=== PATIENT | female | born 1985 | race Caucasian/White ===

== ENCOUNTER 2018-03-29 17:10 | Emergency (ER) | payer OTHER, MEDICAID ==
[~2018-03-29] VITALS: Ht 170.2 cm; Wt 92.5 kg
[~2018-03-29 17:10] MED LIST: BUSPAR 5 MG TABL5 M1; CIPRO250 M1 PO; CIPROFLOXACIN500 M1 PO; CLEOCIN HCL300 MG PO; FLAGYL500 MG PO; IBUPROFEN 800800 M1 PO; IBUPROFEN 800800 MG PO; KEFLEX500 MG PO; MACROBID 100 M100 M1 PO; NOHOMEMEDICATIONS; NORCO 5-325 TA1 EACH PO; PERCOCET 5-3251 EACH PO; PHENERGAN 25 MG25 M1 PO; PHENERGAN25 M2 RC; PRENATAL PO; PROMETHAZINE HC25 M1 PO; PYRIDIUM200 MG PO; TRAMADOL 50 MG50 MG PO; ULTRAM 50MG TAB50 MG PO; ZOFRAN 4 MG ORAL4 M1 DIS; ZOFRAN 4 MG ORAL4 MG PO; ZOFRAN ODT4 MG PO
[2018-03-29] MEDS ORDERED: BUSPIRONE HCL10 MG PO (17:34)
[2018-03-29 18:24] LABS: URINE BILIRUBIN NEGATIVE (Negative); URINE BLOOD NEGATIVE (Negative); URINE CLARITY CLEAR; URINE COLOR YELLOW; URINE GLUCOSE-RANDOM NEGATIVE (Negative); URINE KETONES NEGATIVE (Negative); URINE LEUKOCYTES-REFLEX NEGATIVE (Negative); URINE NITRITE-REFLEX NEGATIVE (Negative); URINE PROTEIN NEGATIVE (Negative); URINE SPECIFIC GRAVITY 1.015 (1.005-1.030); URINE UROBILINOGEN 0.2 E.U./dl (0.2-1.0)
[2018-03-29 18:25] LABS: ABSOLUTE EOSINOPHILS 0.1 thou/uL (0.0-0.7); ABSOLUTE LYMPHOCYTES 1.8 thou/uL (0.8-5.3); ABSOLUTE MONOCYTES 0.5 thou/uL (0.0-1.2); ABSOLUTE NEUTROPHILS 3.1 thou/uL (1.6-8.1); BASOPHILS 0.4 %; EOSINOPHILS 1.6 %; HEMATOCRIT 40.7 % (37.0-47.0); HEMOGLOBIN 13.6 gm/dL (12.0-15.0); LYMPHOCYTES 33.5 %; MCH 31.2 pg (26.0-34.0); MCHC 33.5 g/dL (28.0-37.0); MCV 93.1 fL (80.0-100.0); MONOCYTES 8.3 %; MPV 8.9 fl. (7.2-11.1); NUCLEATED RBCS 0 /100WBC; PLATELET COUNT* 166 thou/uL (150-400); POLYS 56.2 %; RBC 4.37 mil/uL (4.20-5.00); RDW-CV 12.6 % (10.5-14.5); WBC 5.5 thou/uL (4.0-11.0)
[2018-03-29 18:46] LABS: PLATELET ESTIMATE ADEQUATE
[2018-03-29 18:47] LABS: CALCIUM 9.3 mg/dL (8.5-10.1); CREATININE 0.9 mg/dL (0.6-1.3); POTASSIUM 4.5 mmol/L (3.5-5.1)
[2018-03-29 18:52] LABS: ALBUMIN 3.4 g/dL (3.4-5.0); TOTAL BILIRUBIN 0.2 mg/dL (<0.1-1.0); TOTAL PROTEIN 6.1 g/dL (6.4-8.2)
[2018-03-29 19:35] VITALS: BP 112/77
== END 2018-03-29 19:36 | disposition home or self-care (01) ==
LOC: M.ERS 17:10
PROVIDERS: Nurse Practitioner Family
DX: D24.1 Benign neoplasm of right breast (principal); Z87.442 Personal history of urinary calculi; Z88.5 Allergy status to narcotic agent; Z88.6 Allergy status to analgesic agent

== ENCOUNTER 2018-05-31 17:19 | Emergency (ER) | payer OTHER, MEDICAID ==
[~2018-05-31] VITALS: Ht 170.2 cm; Wt 93.0 kg
[~2018-05-31 17:19] MED LIST changes: +BUSPIRONE HCL10 MG PO
[2018-05-31 18:20] LABS: INFLUENZA A ANTIGEN None Detected (None Detect); INFLUENZA B ANTIGEN None Detected (None Detect)
[2018-05-31 18:57] LABS: URINE BILIRUBIN NEGATIVE (Negative); URINE BLOOD NEGATIVE (Negative); URINE CLARITY CLEAR; URINE COLOR YELLOW; URINE GLUCOSE-RANDOM NEGATIVE (Negative); URINE KETONES NEGATIVE (Negative); URINE LEUKOCYTES-REFLEX NEGATIVE (Negative); URINE NITRITE-REFLEX NEGATIVE (Negative); URINE PROTEIN NEGATIVE (Negative); URINE UROBILINOGEN 0.2 E.U./dl (0.2-1.0)
[2018-05-31] MEDS ORDERED: PREDNISONE 10 M10 M1 PO (19:12)
[2018-05-31 19:30] VITALS: BP 142/88
== END 2018-05-31 19:31 | disposition home or self-care (01) ==
LOC: M.ERS 17:19
PROVIDERS: Nurse Practitioner
DX: B34.9 Viral infection, unspecified (principal); Z88.5 Allergy status to narcotic agent

== ENCOUNTER 2018-07-01 19:22 | Emergency (ER) | payer OTHER, MEDICAID ==
[~2018-07-01] VITALS: Ht 170.2 cm; Wt 95.7 kg
[~2018-07-01 19:22] MED LIST changes: +PREDNISONE 10 M10 M1 PO
[2018-07-01] MEDS ORDERED: NORCO 5-325 TA1 EACH PO (20:48)
[2018-07-01 21:06] VITALS: BP 103/73
== END 2018-07-01 21:07 | disposition home or self-care (01) ==
LOC: M.ERS 19:22
DX: N64.4 Mastodynia (principal); F17.210 Nicotine dependence, cigarettes, uncomplicated; Z88.5 Allergy status to narcotic agent; Z87.442 Personal history of urinary calculi; Z87.440 Personal history of urinary (tract) infections

== ENCOUNTER 2019-03-27 09:25 | Emergency (ER) | payer OTHER, MEDICAID ==
[~2019-03-27] VITALS: Ht 170.2 cm; Wt 99.8 kg
[2019-03-27] MEDS ORDERED: BUSPIRONE HCL10 MG PO (09:42)
[2019-03-27 10:21] LABS: INFLUENZA A ANTIGEN Negative (Negative); INFLUENZA B ANTIGEN Negative (Negative)
[2019-03-27] MEDS ORDERED: IBUPROFEN 800800 M1 PO (10:42)
[2019-03-27] MEDS ORDERED: NORCO 5-325 TA1 EAC1 PO (10:42)
[2019-03-27 11:36] VITALS: BP 119/70
== END 2019-03-27 11:36 | disposition home or self-care (01) ==
LOC: M.ERS 09:25
PROVIDERS: Emergency Medicine Emergency Medical Services
DX: J06.9 Acute upper respiratory infection, unspecified (principal); M26.602 Left temporomandibular joint disorder, unspecified; Z87.442 Personal history of urinary calculi; Z88.5 Allergy status to narcotic agent